=== PATIENT | female | born 1985 | race Caucasian/White ===

== ENCOUNTER 2018-05-28 07:26 | Inpatient (IN) | payer BC ==
[~2018-05-28] VITALS: Ht 170.2 cm; Wt 89.5 kg
[2018-05-28] VITALS (32 sets, daily range): BP systolic 90–160; BP diastolic 45–79; PULSE 54–144; TEMP 98.1–98.9
[~2018-05-28 07:26] MED LIST: PRENATAL1 TA1 PO
[2018-05-28 08:26] LABS: BASO % 0.4 % (0.0-2.0); EOS # 0.2 (0.0-0.7); EOS % 1.7 % (0-4.0); GRAN # 7.4 (1.4-6.5); GRAN % 67.9 % (42.2-75.2); HEMOGLOBIN 12.3 g/dl (12.5-16.0); LYMPH # 2.3 (1.2-3.4); LYMPH % 21.1 % (20.0-51.0); MEAN CELL VOLUME 94 fl (80.0-100.0); MEAN CORPUSCULAR HEMOGLOBIN 32 pg (27.0-31.0); MEAN CORPUSCULAR HGB CONC 34 g/dl (33.0-37.0); MEAN PLATELET VOLUME 10.3 fl (7.4-10.4); MONO # 0.9 (0.1-0.6); MONO % 8.3 % (1.7-9.3); PLATELET COUNT 215 K/mm3 (130-400); REDCELL DISTRIBUTION WIDTH-CV 13.2 % (11.5-14.5)
[2018-05-28 08:28] LABS: HEMATOCRIT 36.7 % (37.0-47.0)
[2018-05-29 06:55] VITALS: BP 109/58; PULSE 59; TEMP 97.9
[2018-05-29] MEDS ORDERED: IBU600 MG PO (07:41)
== END 2018-05-29 15:15 | disposition home or self-care (01) | DRG 807 ==
LOC: LDR 07:26 → OB 15:24
PROVIDERS: Obstetrics & Gynecology
PROC: 10E0XZZ Delivery of Products of Conception, External Approach (ICD-10-PCS; principal; 2018-05-28)
PROC: 10907ZC Drainage of Amniotic Fluid, Therapeutic from Products of Conception, Via Natural or Artificial Opening (ICD-10-PCS; 2018-05-28)
PROC: 3E033VJ Introduction of Other Hormone into Peripheral Vein, Percutaneous Approach (ICD-10-PCS; 2018-05-28)
DX: O69.1XX0 Labor and delivery complicated by cord around neck, with compression, not applicable or unspecified (principal); Z37.0 Single live birth; Z3A.40 40 weeks gestation of pregnancy; O69.3XX0 Labor and delivery complicated by short cord, not applicable or unspecified
CPT/HCPCS: J2210; J2590; J2795; J7120